=== PATIENT | male | born 1995 | race Caucasian/White ===

== ENCOUNTER 2024-08-18 21:47 | Emergency (ER) | payer OTHER ==
[~2024-08-18] VITALS: Ht 167.6 cm; Wt 77.3 kg
[~2024-08-18 21:47] MED LIST: FLUT1BLS6 IH; IBUP-1493 PO; LEVAHFA IH
[2024-08-18 21:50] VITALS: TEMP 97.6
[2024-08-18 22:25] VITALS: BP 127/73; PULSE 68; RESP 19; O2SAT 98
[2024-08-18] MEDS: IBUPROFEN 600 MG TABLET PO ONE (22:56)
[2024-08-18] MEDS: LIDOCAINE 5% TRANSDERMAL PATCH TD ONE (22:57)
[2024-08-18] MEDS ORDERED: LIDO700A15 TP (23:29)
[2024-08-18] MEDS ORDERED: CYCL-448 PO (23:29)
== END 2024-08-18 23:47 | disposition home or self-care (01) ==
LOC: EMS 21:47
DX: S16.1XXA Strain of muscle, fascia and tendon at neck level, initial encounter (principal); J45.909 Unspecified asthma, uncomplicated; Z91.030 Bee allergy status; Z79.1 Long term (current) use of non-steroidal anti-inflammatories (NSAID); Z79.51 Long term (current) use of inhaled steroids; Z86.73 Personal history of transient ischemic attack (TIA), and cerebral infarction without residual deficits; Z98.890 Other specified postprocedural states; V89.2XXA Person injured in unspecified motor-vehicle accident, traffic, initial encounter; Y93.89 Activity, other specified; Y92.410 Unspecified street and highway as the place of occurrence of the external cause; Y92.89 Other specified places as the place of occurrence of the external cause
CPT/HCPCS: 72040; 72072; 99284; Z7502; Z7610